=== PATIENT | male | born 1930 | race Caucasian/White ===

== ENCOUNTER → 2017-02-23 | Outpatient (CLI) | payer OTHER ==
--- NOTE | 2017-02-23 13:10 | KCIC ---
EXAM: Renal sonogram. HISTORY: Left renal neoplasm. TECHNIQUE: Sonographic imaging of the kidneys and bladder was performed. COMPARISON: 11/01/2013. FINDINGS: The right kidney measures 11.7 cm [id number] and the left kidney measures 13.4 cm [id number]. There are simple appearing cysts within both kidneys, measuring 2.8 cm within the right upper pole, 1.5 seen with the lateral right mid zone, and 1.7 cm within the lateral left mid zone. No solid renal lesion is seen. There is no hydronephrosis. The bladder is unremarkable. There is prostatomegaly. There is suspected hepatic steatosis. IMPRESSION: 1. Bilateral renal cysts. Renal protocol CT or MRI can be performed if there is concern for a sonographically occult solid lesion. 2. Prostatomegaly. Electronically signed by: Bonita Phoenix MD (02/23/2017 1:07 PM) [email or web address]
== END | disposition home or self-care (01) ==
LOC: KCIC US 12:14
PROVIDERS: ATTEND Internal Medicine Nephrology
DX: D41.02 Neoplasm of uncertain behavior of left kidney (principal); N28.1 Cyst of kidney, acquired; N40.0 Benign prostatic hyperplasia without lower urinary tract symptoms
CPT/HCPCS: 76770